=== PATIENT | male | born 1950 | race Caucasian/White ===

== ENCOUNTER 2020-09-28 09:00 | Inpatient (IN) | payer OTHER, BC ==
[2020-09-21 11:54] VITALS: BMI 25.2
[2020-09-28] MEDS ORDERED: CEFAZOLIN 2 GM in DEXTROSE 5%-WATER - 50 ML IVPB ONE (10:09)
[2020-09-28] MEDS ORDERED: TRANEXAMIC ACID 1000 MG/10 ML VIAL IVPUSH ONE (10:09)
[2020-09-28] MEDS: CELECOXIB 200 MG CAPSULE PO ONE (10:20)
[2020-09-28] MEDS ORDERED: MIDAZOLAM HCL 2 MG/2 ML SINGLE DOSE VIAL ONE ×3 (10:39→11:38)
[2020-09-28] MEDS ORDERED: BUPIVACAINE HCL/PF 0.5% (5 MG/ML) 30 ML VIAL IJ ONE (10:39)
[2020-09-28] MEDS ORDERED: PROPOFOL 20 ML ONE ×2 (11:16→12:20)
[2020-09-28] MEDS ORDERED: SUCCINYLCHOLINE CHLORIDE 200 MG/10 ML SYRINGE ONE (11:17)
[2020-09-28] MEDS ORDERED: BUPIVACAINE HCL/PF 0.5% (5MG/ML) 10 ML VIAL ONE (11:19)
[2020-09-28] MEDS ORDERED: ONDANSETRON 4 MG/2 ML VIAL ONE (11:38)
[2020-09-28] MEDS ORDERED: ceFAZolin SODIUM 1 GM VIAL ONE ×2 (11:38→11:43)
[2020-09-28] MEDS ORDERED: DEXAMETHASONE SOD PHOSPHATE 4 MG/1 ML VIAL ONE (11:38)
[2020-09-28] MEDS ORDERED: VANCOMYCIN 1,000 MG VIAL (RESTRICTED TO ID ONLY) ONE (11:43)
[2020-09-28] MEDS ORDERED: EPHEDRINE SULFATE/0.9% NACL/PF 50 MG/10 ML SYRINGE NR ONE (12:01)
[2020-09-28] MEDS ORDERED: VANCOMYCIN 1,000 MG VIAL (RESTRICTED TO ID ONLY) IVPB ONE (12:14)
[2020-09-28] MEDS ORDERED: ONDANSETRON 4 MG/2 ML VIAL IVPUSH PRN ×2 (12:35→12:51)
[2020-09-28] MEDS ORDERED: MAG HYDROX/AL HYDROX/SIMETH 30 ML UNIT-DOSE CUP PO PRN (12:35)
[2020-09-28] MEDS ORDERED: MAGNESIUM HYDROX 2400MG/30ML ORAL SUSPENSION 30 ML CUP PO PRN (12:35)
[2020-09-28] MEDS ORDERED: LACTATED RINGERS SOLUTION 1,000 ML IV SCH (12:45)
[2020-09-28] MEDS ORDERED: PROMETHAZINE HCL 25 MG/1 ML VIAL IVPUSH PRN (12:51)
[2020-09-28] MEDS ORDERED: oxyCODONE HCL 5 MG TABLET PO PRN ×2 (12:51)
[2020-09-28] MEDS: ACETAMINOPHEN 325 MG TABLET (FP) PO SCH (13:00)
[2020-09-28] MEDS: CEFAZOLIN 2 GM/D5W 2 GM/50 ML ML IVPB SCH (19:45)
[2020-09-28] MEDS: oxyCODONE HCL 10 MG SUSTAINED ACTING TABLET PO SCH (21:18)
[2020-09-28] MEDS: SENNOSIDES/DOCUSATE COMBO (SENNA PLUS) TABLET (UD) PO SCH (21:19)
[2020-09-28] MEDS: DOXAZOSIN MESYLATE 4 MG TABLET PO SCH (21:19)
[2020-09-29] MEDS: ACETAMINOPHEN 325 MG TABLET (FP) PO SCH ×4 (02:38→20:12)
[2020-09-29] MEDS: CELECOXIB 200 MG CAPSULE PO ONE (07:42)
[2020-09-29 08:01] LABS: HEMATOCRIT 31.4 % (35.4-49); HEMOGLOBIN 10.9 GM/dl (11.7-16.9); MCH 31.9 pg (25.7-33.7); MCHC 34.6 g/dl (32.0-35.9); MEAN CELL VOLUME 92.1 fl (80-96); MEAN PLT VOLUME 7.2 fl (7.5-11.1); PLATELET COUNT 178 K/MM3 (134-434); RBC 3.41 M/mm3 (4.00-5.60); RDW 12.5 % (11.9-15.9); WHITE BLOOD COUNT 6.4 K/mm3 (4.0-10.8)
[2020-09-29] MEDS: CEFAZOLIN 2 GM/D5W 2 GM/50 ML ML IVPB SCH (08:26)
[2020-09-29] MEDS: ASPIRIN 325 MG TABLET PO SCH (08:55)
[2020-09-29] MEDS: oxyCODONE HCL 10 MG SUSTAINED ACTING TABLET PO SCH ×2 (08:59→21:17)
[2020-09-29] MEDS: PANTOPRAZOLE 40 MG TABLET PO SCH (08:59)
[2020-09-29] MEDS: ALLOPURINOL 300 MG TABLET (FP) PO SCH (08:59)
[2020-09-29] MEDS: SENNOSIDES/DOCUSATE COMBO (SENNA PLUS) TABLET (UD) PO SCH ×2 (08:59→21:12)
[2020-09-29] MEDS: MULTIVITAMINS (DAILY MVI) TABLET (FP) PO SCH (08:59)
[2020-09-29] MEDS: NEBIVOLOL 10 MG TABLET (FP) PO SCH (12:19)
[2020-09-29] MEDS: amLODIPine BESYLATE 5 MG TABLET (FP) PO SCH (12:19)
[2020-09-29] MEDS: DOXAZOSIN MESYLATE 4 MG TABLET PO SCH (21:12)
[2020-09-30] MEDS: ACETAMINOPHEN 325 MG TABLET (FP) PO SCH ×2 (02:19→08:29)
[2020-09-30] MEDS: ASPIRIN 325 MG TABLET PO SCH (08:29)
[2020-09-30 09:06] LABS: HEMATOCRIT 29.9 % (35.4-49); MCH 31.3 pg (25.7-33.7); MCHC 33.6 g/dl (32.0-35.9); MEAN CELL VOLUME 93.4 fl (80-96); MEAN PLT VOLUME 7.5 fl (7.5-11.1); PLATELET COUNT 136 K/MM3 (134-434); RDW 12.6 % (11.9-15.9); WHITE BLOOD COUNT 5.2 K/mm3 (4.0-10.8)
[2020-09-30 09:26] VITALS: BP 127/53; PULSE 83; TEMP 98.9
[2020-09-30] MEDS: ALLOPURINOL 300 MG TABLET (FP) PO SCH (09:53)
[2020-09-30] MEDS: SENNOSIDES/DOCUSATE COMBO (SENNA PLUS) TABLET (UD) PO SCH (09:53)
[2020-09-30] MEDS: PANTOPRAZOLE 40 MG TABLET PO SCH (09:53)
[2020-09-30] MEDS: amLODIPine BESYLATE 5 MG TABLET (FP) PO SCH (09:53)
[2020-09-30] MEDS: MULTIVITAMINS (DAILY MVI) TABLET (FP) PO SCH (09:53)
[2020-09-30] MEDS: NEBIVOLOL 10 MG TABLET (FP) PO SCH (09:54)
[2020-09-30] MEDS: oxyCODONE HCL 10 MG SUSTAINED ACTING TABLET PO SCH (09:55)
[2020-09-30] MEDS ORDERED: PT OWN MED DRAWER 7, Y5N ONE (10:35)
== END 2020-09-30 11:15 | disposition home health service (06) | DRG 470 ==
LOC: FM/S 09:55
PROVIDERS: ADMIT Orthopaedic Surgery; ATTEND Orthopaedic Surgery
PROC: 8E0Y0CZ Robotic Assisted Procedure of Lower Extremity, Open Approach (ICD-10-PCS; 2020-09-28)
PROC: 0SRB0JA Replacement of Left Hip Joint with Synthetic Substitute, Uncemented, Open Approach (ICD-10-PCS; principal; 2020-09-28 11:45)
DX: M16.12 Unilateral primary osteoarthritis, left hip (principal); I10 Essential (primary) hypertension; E78.5 Hyperlipidemia, unspecified; Z87.891 Personal history of nicotine dependence; C61 Malignant neoplasm of prostate; Z88.0 Allergy status to penicillin
CPT/HCPCS: 36415; 73502-TC-LT-FY; 85027; 88305-TC; 88311-TC; 94760; 97010-GP; 97116-GP; 97162-GP